=== PATIENT | female | born 1990 | race Two or more races ===

== ENCOUNTER 2020-10-29 12:22 | Emergency (ER) | payer SELFPAY ==
[~2020-10-29] VITALS: Ht 162.6 cm; Wt 61.4 kg
[2020-10-29 12:33] VITALS: BP 126/67
[2020-10-29] MEDS ORDERED: BACITRACIN 0.9 GM PACKET OINTMENT TP ONE (13:45)
[2020-10-29] MEDS ORDERED: POVIDONE-IODINE 10% 15 ML SOLUTION UD TP ONE (13:45)
[2020-10-29] MEDS ORDERED: IBUPROFEN 400 MG TABLET PO ONE (13:45)
[2020-10-29] MEDS ORDERED: AMOX TR/POT CLAV 875 MG/125 MG TABLET PO ONE (13:45)
== END 2020-10-29 14:04 | disposition home or self-care (01) ==
LOC: EMS 12:22
DX: S61.451A Open bite of right hand, initial encounter (principal); W55.01XA Bitten by cat, initial encounter; Y93.9 Activity, unspecified; Y92.89 Other specified places as the place of occurrence of the external cause; Y99.8 Other external cause status
CPT/HCPCS: 99283